=== PATIENT | female | born 1980 | race Caucasian/White ===

== ENCOUNTER 2016-09-14 15:28 | Inpatient (IN) | payer BC ==
--- NOTE | ~2016-09-14 | HP ---
History And Physical [address] [place]. [address] NAME: NELSON PEGUERO : 84 STATUS : ADM Bobbi PAT#: [id number] AGE: 36 ADM/REG DATE : 09/14/16 MR#: [id number] REPORT SERV DATE: 09/15/16 DICTATED BY: MORTEZA SILVEIRA DATE: 09/14/16 REPORT STATUS : Draft TRANSCRIBED BY: MODL DATE: 09/14/16 DATE OF ADMISSION: 09/14/2016 The patient is a very pleasant 36-year-old female, who presented to [facility] emergency room because of the rash, which she developed yesterday at work. The patient works for [employer] [place] DICTATION ENDS HERE /BARNEY Morteza Silveira M.D. / [id number] CC: Papo Bolanos Jr, MD
--- NOTE | ~2016-09-14 | CN ---
Consultation Report [facility] [address] [place] [place]. [address] NAME: NELSON PEGUERO : 84 STATUS : DIS IN PAT#: [id number] AGE: 36 ADM/REG DATE : 09/14/16 MR#: [id number] REPORT SERV DATE: 09/20/16 DICTATED BY: TRAV FLORES DATE: 09/19/16 REPORT STATUS : Draft TRANSCRIBED BY: MODL DATE: 09/19/16 SURGERY CONSULT NOTE. DATE OF CONSULTATION: 09/14/2016 DICTATED BY: Trav Rosales. REASON FOR CONSULT: Right lower quadrant pain with fever, chills, and hives. HISTORY OF PRESENT ILLNESS: The patient reports redness of the face and skin all over her body which occurred suddenly yesterday. The patient reports she was receiving a Decadron shot during this time period. She reports having noted episodes of erythema and rash all over her body earlier today, where she received another Decadron shot. At that time she also received Benadryl. On reviewing changes in the patient's habit, she did admit to using a new laundry detergent in the past two days, and states that on the second day of her reaction that she had not used it. The patient has had no prior episodes of this. She has no new medications. She endorses right lower quadrant pain which started suddenly when she bent over earlier today. REVIEW OF SYSTEMS: A comprehensive review of systems was conducted and was negative, other than what is listed in the history of present illness as well as the following attributes. She endorses heart palpitation, chronic back pain as well as nausea, but denies vomiting, any kind of bleeding diathesis, pulmonary problems, endocrine problems. LABORATORY DATA: Sodium 141, potassium 4.2, chloride 107, CO2 of 24, BUN 9, creatinine 0.98, glucose 113, AST 11, ALT 24, alkaline phosphatase 96, and T-bilirubin 0.3. White count 28, hemoglobin 13, hematocrit 37.9, and platelets 309. PHYSICAL EXAMINATION: VITAL SIGNS: Blood pressure 158/98, temperature 101, respirations 14, and pulse 99. GENERAL: The patient is awake, alert, and oriented, in no acute distress. HEENT: Normocephalic and atraumatic. No cervical nodes palpated. RESPIRATORY: Clear to auscultation bilaterally. No increased work of breathing. Chest wall expands symmetrically. ABDOMEN: Soft. Tender to palpation on the right lower quadrant, but able to perform deep palpation without significant pain. Questionable rebound. No Rovsing sign. No peritonitis. HEART: Regular rate and rhythm. EXTREMITIES: 2+ radial pulses bilaterally. No lower extremity pitting edema. NEURO: Cranial nerves 2 through 12 grossly intact. PAST MEDICAL HISTORY: Consultation Report [address] [place]. [address] NAME: NELSON PEGUERO : 84 STATUS : DIS IN PAT#: [id number] AGE: 36 ADM/REG DATE : 09/14/16 MR#: [id number] REPORT SERV DATE: 09/20/16 DICTATED BY: TRAV FLORES DATE: 09/19/16 REPORT STATUS : Draft TRANSCRIBED BY: BARNEY DATE: 09/19/16 1. Lumbar herniated disc. 2. Anxiety. 3. Depression. 4. Migraines. PAST SURGICAL HISTORY: 1. Right foot surgery. 2. Laparoscopic cholecystectomy. 3. Tonsillectomy. 4. [place] tooth surgery. 5. Lipoma removal on the right shoulder. 6. Excision of dysplastic nevi. FAMILY HISTORY: Coronary artery disease. No unusual allergies. SOCIAL HISTORY: No smoking or drug use. Occasional alcohol. ALLERGIES: TO PREVACID, VICKS VAPOR RUB, MENTHOL, WHICH CAUSE RASHES. ASSESSMENT: The patient is a 36-year-old female with a likely allergic reaction and right lower quadrant pain. PLAN: Plan will be to have the patient admitted, watch closely for additional allergies responses. We will continue to monitor her right lower quadrant pain, for any signs peritonitis or appendicitis. However, at this time, I figured that the patient has right lower quadrant pain which is not secondary to appendicitis. White count likely secondary to Decadron shot. Her history and clinical exam were not consistent with appendicitis at this time. We will continue to monitor the patient while in the hospital. BRAYDON/BARNEY Derek Flroes M.D. / [id number] CC: Ericka Jackald Mandy, D.O.
--- NOTE | ~2016-09-14 | DS ---
Discharge Summary [facility] [address] [place] [place]. [address] NAME: NELSON PEGUERO : 84 STATUS : DIS IN PAT#: [id number] AGE: 36 ADM/REG DATE : 09/14/16 MR#: [id number] REPORT SERV DATE: 09/17/16 DICTATED BY: JR. BOLANOS WILLIAM JOHN DATE: 09/16/16 REPORT STATUS : Draft TRANSCRIBED BY: BARNEY DATE: 09/16/16 ADMISSION DATE: 09/14/2016 DISCHARGE DATE: 09/16/2016 DISCHARGE DIAGNOSES: 1. Intermittent rash likely secondary to allergic reaction. 2. Fever. 3. Leukocytosis. 4. Right lower quadrant abdominal pain. OPERATIONS, PROCEDURES, AND TREATMENTS: Include: 1. Chest x-ray done 09/14/2016, which showed no acute cardiopulmonary disease. 2. CT of the abdomen and pelvis done 09/14/2016, which showed the appendix was difficult and discretely visualized; however, no pericecal inflammatory change seen to suggest acute appendicitis. There was trace free fluid in the pelvis, which may be physiologic. 3. Blood cultures x2 done 09/13 were sterile. 4. Sputum culture showed no growth of beta hemolytic strep. 5. Strep throat screen was negative. DISCHARGE MEDICATIONS: Include: 1. Morphine immediate release 15 mg twice a day. 2. Zanaflex 4 mg orally at bedtime. 3. BuSpar 5 mg orally daily as needed. 4. Motrin 800 mg orally daily as needed. 5. Benadryl 25-50 mg every six hours as needed. HOSPITAL COURSE: The patient is a 36-year-old white female, who presented to [facility] Emergency Room on 09/14 after suffering a rash. The patient works at [employer]. She said that she had changed laundry detergents over the weekend and then on Tuesday was at work when she developed funny sensation in her arms, felt flushed, and had a rash for neck and upper torso down to the waist. It was red and homogeneous. She was given steroid in the surgical office and Benadryl. She went home. The rash got better. She returned to work the next day. Says she bent over and had recurrence of the rash covering her torso, face, neck, and upper extremities. She presented to the emergency room at which time she complained of right lower quadrant pain, also had a temperature of 101. For complete details, please see Dr. Dumas's dictated history and physical. The patient was initially placed on IV antibiotics for potential appendicitis. She was seen in consultation by surgery, Dr. Escalera, who felt there was no surgical issue at this time. The case was discussed with Infectious Disease as well as Surgery. There was felt to be no infectious or surgical causes of the rash. The abdominal pain resolved spontaneously. The rash seems to be an exposure reaction/histamine response. I discussed allergy testing with the patient. She will consider this. We also discussed the use of Benadryl as needed. The patient did admit that when she gets upset in times of stress, she does get a blotchy Discharge Summary [address] [address] NAME: NELSON PEGUERO : 84 STATUS : DIS IN PAT#: [id number] AGE: 36 ADM/REG DATE : 09/14/16 MR#: [id number] REPORT SERV DATE: 09/17/16 DICTATED BY: JR. BOLANOS WILLIAM JOHN DATE: 09/16/16 REPORT STATUS : Draft TRANSCRIBED BY: BARNEY DATE: 09/16/16 histamine reaction type rash. The patient will be discharged home today, 09/14/2016, in good condition. FOLLOWUP: She will follow up with her primary care physician, Rubio Galvan, two to four weeks. DIET: Will be regular. ACTIVITY: As tolerated. For discharge exam and laboratory, please see daily progress note. This discharge took less than 30 minutes for the patient's encounter, coordination of care, and documentation. RAHEEM/BARNEY Papo Bolanos Jr, MD / [id number] CC: Papo Bolanos Jr, MD Donald Hartsfield, D.O.
--- NOTE | ~2016-09-14 | HP ---
History And Physical [place] [id number] [place]. [address] NAME: NELSON PEGUERO : 84 STATUS : ADM Bobbi PAT#: [id number] AGE: 36 ADM/REG DATE : 09/14/16 MR#: [id number] REPORT SERV DATE: 09/14/16 DICTATED BY: MORTEZA SILVEIRA DATE: 09/14/16 REPORT STATUS : Draft TRANSCRIBED BY: MODL DATE: 09/14/16 DATE OF ADMISSION: 09/14/2016 HISTORY OF PRESENT ILLNESS: This is a 36-year-old female, who presented to [facility] Emergency Room because of the rash which comes and goes as well as not feeling well since yesterday at work. 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 It was a red rash. She was given Decadron intravenously with Benadryl, and it was thought that the rash is related to laundry detergent, so basically after she was given steroid and Benadryl. She went home, but the rash basically got better, then she started to develop rash again. She was feeling subjectively warm and swollen. She was lightheaded with decreased appetite at least for a week. She had some mild cough before. Probably, she had upper respiratory infection before. She was also complaining of some nausea and abdominal pain. She was having some headache which got better now. Today, this morning, she went to work again and again she developed that rash. She basically was given another dose of Decadron and because she was not feeling well, she was sent to emergency room. Here in the emergency room, she was noted to have a fever of 101, and she was complaining of right lower quadrant pain. Emergency room physician, Dr. Kiser, did a CT of the abdomen and pelvis without contrast on her. She denies any chest pain. No headache now. No shortness of breath. No constipation or diarrhea. All 14-point review of systems done and negative except what is stated in the history of present illness. PAST MEDICAL HISTORY: The patient said that she was healthy in general not having any medical problems. She denies any abdominal pain yesterday, but the pain is present today. She said that surgical history is pretty extensive. She had cholecystectomy. She had five metatarsal surgery with some screws and plates there and history of lipoma removed from the shoulder. SOCIAL HISTORY: No alcohol. No recreational drug use. No smoking. She uses alcohol occasionally. No recreational drug use. No smoking. She is . She has one 5-year- old daughter. She works for [employer]. [employer], [employer]. FAMILY HISTORY: She is adopted. She does not know what medical problems her biological mother has. Father had a heart attack, diabetes, and hypertension. HOME MEDICATIONS: Include BuSpar 5 mg daily as needed, ibuprofen 800 mg daily p.r.n., morphine immediate release 15 mg twice a day. She goes to pain management Zanaflex 4 mg at bedtime. ALLERGIES: SHE IS ALLERGIC TO DARVOCET, VICKS VAPOR, MENTHOL CAMPHOR, TURPENTINE OIL, ADHESIVE TAPE. SHE SAID THAT SHE IS ABLE TO TAKE ANTIBIOTIC. SHE WAS BEFORE ON ROCEPHIN AND LEVAQUIN AND SHE DID NOT HAVE ANY REACTIONS TO THAT. PHYSICAL EXAMINATION: GENERAL: Well-nourished, well-developed female, not in acute distress, resting quietly. History And Physical [address] [address] NAME: NELSON PEGUERO : 84 STATUS : ADM Bobbi PAT#: [id number] AGE: 36 ADM/REG DATE : 09/14/16 MR#: [id number] REPORT SERV DATE: 09/14/16 DICTATED BY: MORTEZA SILVEIRA DATE: 09/14/16 REPORT STATUS : Draft TRANSCRIBED BY: BARNEY DATE: 09/14/16 VITAL SIGNS: Blood pressure 159/98, temperature 101, heart rate 99, respiratory rate 14, and oxygen saturation 99% on room air. HEENT: Head atraumatic, normocephalic. Conjunctivae clear. Pupils are equal and reactive to light and accommodation. Extraocular muscles are intact. NECK: Supple. Trachea is midline. No supraclavicular or cervical lymphadenopathy. No neck tenderness on flexion. CARDIOVASCULAR SYSTEM: Regular rate and rhythm. Point of maximal impulse not displaced. LUNGS: Clear to auscultation bilaterally with normal respiratory effort. ABDOMEN: Soft. There is tenderness to palpation in the right lower quadrant with some rebound on release of the palpation, but abdomen is soft. There is no pain in all other quadrants. There is no organomegaly. EXTREMITIES: No clubbing or cyanosis. No edema. SKIN: Normal color and turgor. There is erythema on the neck and as well as upper chest and upper back, but it comes and goes. NEUROLOGIC: She is awake, alert, and oriented in time, place, and person. PSYCHIATRIC: Normal mood and affect. LABORATORY RESULTS: Sodium 141, potassium 4.2, chloride 107, carbon dioxide 24, BUN 9, creatinine 0.98, blood sugar 113. ALT 24, AST 11, total bilirubin 0.3. White count 28,000, hemoglobin 13, hematocrit 37.9, and platelet count 309. There are 85% segments, 10% lymphocytes, and 5% monocytes. Absolute neutrophil count is 23.8. Lactate is 1.5. Urinalysis did not show any evidence of UTI. Blood cultures were drawn in the emergency room, currently pending. Monospot test is negative. Influenza A and B screen is negative. Urine test is negative. Chest x-ray, AP and lateral, no acute cardiopulmonary process. CT of the abdomen and pelvis without contrast done today in the emergency room. The appendix is difficult to visualize; however, no pericecal inflammatory changes seen to suggest acute appendicitis. Trace free fluid in the pelvis, which may be physiological. ASSESSMENT AND PLAN: This is a 36-year-old female, who presented with: 1. Rash, comes and goes. 2. Fever. 3. Leukocytosis, but she was given steroids, Decadron yesterday and today. 4. Right lower quadrant abdominal pain. The patient will be admitted to the observation unit in the CDU, and I am going to check her procalcitonin level as well as blood cultures are already ordered in the ER. We will check sedimentation rate and CRP. Question if this rash is related to allergic reaction or it could be related to infection as well. The patient was not found any evidence of infection. She has clear chest x-ray and urinalysis. We wait for blood cultures as well as I will check urine by PCR for gonorrhea and chlamydia, and the patient reported that she is not allergic to Rocephin, so she will be given Rocephin and Flagyl intravenously. I will consult Infectious Disease specialist also to rule out any infective process. 5. Right lower quadrant abdominal pain with a CT of the abdomen not showing pericecal inflammation. Regarding right lower quadrant pain, there is no pericecal inflammation, but appendix is not visualized. I spoke with Dr. Escalera, General Surgery on-call, History And Physical [address] [address] NAME: NELSON PEGUERO : 84 STATUS : ADM Bobbi PAT#: [id number] AGE: 36 ADM/REG DATE : 09/14/16 MR#: [id number] REPORT SERV DATE: 09/14/16 DICTATED BY: MORTEZA SILVEIRA DATE: 09/14/16 REPORT STATUS : Draft TRANSCRIBED BY: MODL DATE: 09/14/16 they will look at the patient to rule out appendicitis. The urine will be checked for gonorrhea and chlamydia, and I will check sedimentation rate, CRP, and blood cultures are already done and pending. Dr. Bolanos, will see this patient starting tomorrow morning. Everything was discussed with patient and family. MG/BARNEY Morteza Silveira M.D. / [id number] CC: Papo Bolanos Jr, MD Donald Hartsfield, D.O.
[2016-09-14 12:42] LABS: BASOPHILS 0.1 %; BASOPHILS ABSOLUTE 0.03 10/3/uL (0.0-0.16); EOSINOPHILS 0 %; HEMATOCRIT 37.9 % (36.0-48.0); IMMATURE GRANULOCYTES 0.4 %; LYMPHOCYTES 15.2 %; LYMPHOCYTES ABSOLUTE 4.24 10/3/uL (0.67-4.30); MEAN CORPUS HGB CONC 34.3 g/dL (32.0-36.0); MEAN CORPUSCULAR HEMOGLOB 29.2 pg (26.0-34.0); MEAN PLATELET VOLUME 9.6 fL (9.2-13.0); MONOCYTES ABSOLUTE 1.39 10/3/uL (0.21-1.20); NEUTROPHILS 79.3 %; NEUTROPHILS ABSOLUTE 22.21 10/3/uL (2.02-8.40); PLATELET COUNT 309 10/3/uL (150-400); RBC DISTRIBUTION WIDTH 13.4 % (12.0-16.0); RED CELL COUNT 4.45 10/6/uL (4.0-5.6)
[2016-09-14 12:43] LABS: ER CBC TAT 0 Hrs 08 Mins; MEAN CORPUSCULAR VOLUME 85.2 fL (80-100)
[2016-09-14 12:44] LABS: MANUAL DIFF NO %
[2016-09-14 12:54] LABS: ASCORBIC ACID (UR NOT ORDER) NEG (NEG); BILIRUBIN, URINE NEGATIVE (NEG); ER URINALYSIS TAT 0 Hrs 19 Mins; KETONE, URINE NEGATIVE (NEG); LEUKOCYTE ESTERASE(NOT OR TRACE (NEG); NITRITE (URINE) NEG (NEG); WBC (NOT ORDERED) (RFLEX) 1 (0-5)
[2016-09-14 12:54] LABS: INFLUENZA A SCREEN NEGATIVE (NEGATIVE); INFLUENZA B SCREEN NEGATIVE (NEGATIVE)
[2016-09-14 12:57] LABS: ALKALINE PHOSPHATASE 96 U/L (45-117); BUN (BLOOD UREA NITROGEN) 9 MG/DL (6-23); CALCIUM, SERUM 9.1 MG/DL (8.5-10.4); CHLORIDE, SERUM 107 MMOL/L (96-112); CO2 (CARBON DIOXIDE) 24 MMOL/L (24-34); CREATININE 0.98 MG/DL (0.55-1.02); GFR AFRICAN AMERICAN 87 ML/MIN (>=60); GFR NON AFRICAN AMERICAN 75 ML/MIN (>=60); GLUCOSE, SERUM 113 MG/DL (60-99); POTASSIUM, SERUM 4.2 MMOL/L (3.5-5.3); SGOT(AST) 11 U/L (5-40); SGPT(ALT) 24 U/L (5-65); SODIUM, SERUM 141 MMOL/L (135-148); TOTAL BILIRUBIN 0.3 MG/DL (0-1.2)
[2016-09-14 12:59] LABS: LACTATE 1.5 MMOL/L (0.3-2.4)
[2016-09-14 13:13] LABS: ER DIFF TAT 0 Hrs 38 Mins; LYMPHOCYTES 10 %; MONOCYTES 5 %; PLATELET ESTIMATE ADQ (ADEQUATE); RBC MORPHOLOGY NORM (NORMAL); SEGMENTED NEUTROPHIL (0) 85 %; TOTAL NUCLEATED CELLS 100
[~2016-09-14 15:28] MED LIST: IBU-200200 MG PO; METHOC750B PO; NEUR300 PO; NORCO1 TA1 PO; YAZ1 TAB PO
[2016-09-14] MEDS ORDERED: ZANAFLEX 4 MG TA4 MG PO (17:21)
[2016-09-14] MEDS ORDERED: BUSPAR5 PO (17:21)
[2016-09-14] MEDS ORDERED: IBU800 PO (17:22)
[2016-09-14] MEDS ORDERED: MSIMMR15 PO (17:42)
[2016-09-15 00:05] LABS: ULTRASENSITIVE TSH 0.484 MCIU/ML (0.358-3.740)
[2016-09-15 00:17] LABS: C-REACTIVE PROTEIN < 2.9 MG/L (<8.0)
[2016-09-15 01:48] LABS: PROCALCITONIN <0.05 ng/mL (<0.5)
[2016-09-15 02:21] LABS: CHLAMYDIA TRACH PCR NOT DETECTED (NOT DETEC); GC PCR NOT DETECTED (NOT DETECT); SOURCE: FEMALE URINE
[2016-09-15 04:07] LABS: BASOPHILS 0 %; BASOPHILS ABSOLUTE 0.01 10/3/uL (0.0-0.16); EOSINOPHILS 0 %; HEMOGLOBIN 10.6 g/dL (12.0-16.0); IMMATURE GRANULOCYTES 0.4 %; IMMATURE GRANULOCYTES ABSOLUTE 0.08 10/3/uL (0.0-0.11); LYMPHOCYTES 16.1 %; LYMPHOCYTES ABSOLUTE 3.65 10/3/uL (0.67-4.30); MEAN CORPUS HGB CONC 33.5 g/dL (32.0-36.0); MEAN CORPUSCULAR HEMOGLOB 29.4 pg (26.0-34.0); MEAN PLATELET VOLUME 9.2 fL (9.2-13.0); MONOCYTES 4.1 %; MONOCYTES ABSOLUTE 0.93 10/3/uL (0.21-1.20); NEUTROPHILS 79.4 %; NEUTROPHILS ABSOLUTE 18.05 10/3/uL (2.02-8.40); PLATELET COUNT 224 10/3/uL (150-400); RBC DISTRIBUTION WIDTH 13.5 % (12.0-16.0); WHITE BLOOD CELLS 22.7 10/3/uL (4.5-10.5)
[2016-09-15 04:08] LABS: HEMATOCRIT 31.6 % (36.0-48.0); MEAN CORPUSCULAR VOLUME 87.8 fL (80-100)
[2016-09-15 04:09] LABS: MANUAL DIFF NO %
[2016-09-15 04:22] LABS: BUN (BLOOD UREA NITROGEN) 10 MG/DL (6-23); CALCIUM, SERUM 7.8 MG/DL (8.5-10.4); CHLORIDE, SERUM 112 MMOL/L (96-112); CO2 (CARBON DIOXIDE) 22 MMOL/L (24-34); CREATININE 0.78 MG/DL (0.55-1.02); GFR AFRICAN AMERICAN 115 ML/MIN (>=60); GFR NON AFRICAN AMERICAN 99 ML/MIN (>=60); GLUCOSE, SERUM 90 MG/DL (60-99); POTASSIUM, SERUM 3.9 MMOL/L (3.5-5.3); SODIUM, SERUM 144 MMOL/L (135-148)
[2016-09-15 08:17] LABS: ASCORBIC ACID (UR NOT ORDER) NEG (NEG); BILIRUBIN, URINE NEGATIVE (NEG); KETONE, URINE NEGATIVE (NEG); LEUKOCYTE ESTERASE(NOT OR MOD (NEG); WBC (NOT ORDERED) (RFLEX) 10 (0-5)
[2016-09-16 04:43] LABS: BASOPHILS 0.3 %; BASOPHILS ABSOLUTE 0.03 10/3/uL (0.0-0.16); EOSINOPHILS 0.5 %; EOSINOPHILS ABSOLUTE 0.06 10/3/uL (0.0-0.53); HEMOGLOBIN 11.8 g/dL (12.0-16.0); IMMATURE GRANULOCYTES 0.3 %; IMMATURE GRANULOCYTES ABSOLUTE 0.03 10/3/uL (0.0-0.11); LYMPHOCYTES 50.1 %; LYMPHOCYTES ABSOLUTE 5.95 10/3/uL (0.67-4.30); MEAN CORPUS HGB CONC 33.7 g/dL (32.0-36.0); MEAN CORPUSCULAR HEMOGLOB 29.5 pg (26.0-34.0); MEAN CORPUSCULAR VOLUME 87.5 fL (80-100); MEAN PLATELET VOLUME 9.2 fL (9.2-13.0); MONOCYTES 6.1 %; MONOCYTES ABSOLUTE 0.73 10/3/uL (0.21-1.20); NEUTROPHILS 42.7 %; NEUTROPHILS ABSOLUTE 5.08 10/3/uL (2.02-8.40); PLATELET COUNT 218 10/3/uL (150-400); RBC DISTRIBUTION WIDTH 13.3 % (12.0-16.0)
[2016-09-16 04:45] LABS: MANUAL DIFF NO %; WHITE BLOOD CELLS 11.9 10/3/uL (4.5-10.5)
[2016-09-16 05:25] LABS: BASOPHILS 1 %; BASOPHILS ABSOLUTE (CALC) 0.12 10/3/uL (0.0-0.16); LYMPHOCYTES 54 %; LYMPHOCYTES ABSOLUTE (CALC) 6.43 10/3/uL (0.67-4.30); MONOCYTES 4 %; MONOCYTES ABSOLUTE (CALC) 0.48 10/3/uL (0.21-1.20); NEUTROPHILS ABSOLUTE (CALC) 4.88 10/3/uL (2.02-8.40); SEGMENTED NEUTROPHIL (0) 41 %; TOTAL NUCLEATED CELLS 100
[2016-09-16 05:26] LABS: OVALOCYTES 1+ (3-10/OIF) (0-2/OIF)
[2016-09-16] MEDS ORDERED: BEN25 PO (09:46)
== END 2016-09-16 10:25 | disposition home or self-care (01) | DRG 607 ==
LOC: ER 15:28 → CDU1 18:14 → CDU2 20:00
PROVIDERS: Hospitalist; Internal Medicine; Nurse Practitioner
DX: L23.9 Allergic contact dermatitis, unspecified cause (principal); F32.9 Major depressive disorder, single episode, unspecified; M51.26 Other intervertebral disc displacement, lumbar region; F41.9 Anxiety disorder, unspecified; D72.829 Elevated white blood cell count, unspecified; R10.31 Right lower quadrant pain; T38.0X5A Adverse effect of glucocorticoids and synthetic analogues, initial encounter; G43.909 Migraine, unspecified, not intractable, without status migrainosus; Z90.49 Acquired absence of other specified parts of digestive tract; Z88.8 Allergy status to other drugs, medicaments and biological substances
CPT/HCPCS: 71020; 74176; 80048; 80053; 81001; 83605; 83735; 84145; 84443; 84703; 85025; 85652; 86140; 86308; 87040; 87070; 87086; 87491; 87591; 87804; 87880; 96374; 96375; 99285; A9270-GY; J1170; J1200; J2405